=== PATIENT | male | born 2000 | race Asian ===

== ENCOUNTER 2023-04-03 17:23 | Inpatient (IN) ==
[2023-04-03 23:18] LABS: ABS Lymphocytes 1.3 10^3/uL (1.0-4.8); ABS Monocytes 0.6 10^3/uL (0.0-1.1); ABS Neutrophils 2.4 10^3/uL (1.5-7.6); ABS Nucleated RBC 0.01 10^3/ul; Eosinophil % 0.8 %; Hematocrit 42.5 % (38-53); Hemoglobin 14.7 g/dL (13.2-16.3); Lymphocyte % 30.7 %; Mean Corpuscular Hemoglobin 31.1 pg (27-33); Mean Corpuscular Hgb Conc 34.7 g/dL (31-36); Mean Corpuscular Volume 89.5 fL (80-97); Mean Platelet Volume 8.1 fL (7.5-11.2); Nucleated Red Blood Cells % 0.2 %/100WBC (0.0-0.8); Platelet Count 206 10^3/uL (150-450); Red Blood Count 4.74 10^6/uL (4.06-5.63); Red Cell Distribution Width 12.7 % (12-17); White Blood Count 4.4 10^3/uL (3.6-10.2)
[2023-04-03 23:36] LABS: Albumin 4.3 g/dL (3.2-5.2); Albumin/Globulin Ratio 1.4 (1-3); Calcium 9.4 mg/dL (8.6-10.3); Creatinine, Serum 0.9 mg/dL (0.67-1.17); Globulin 3.1 g/dL (2-4); Potassium 3.6 mmol/L (3.5-5.0); Total Bilirubin 0.4 mg/dL (0.2-1.0); Total Protein 7.4 g/dL (6.4-8.9); eGFR CKD-EPI 124.6 (>60)
[2023-04-04] MEDS ORDERED: Al Hydrox/Mg Hydrox/Simet LIQ 30 ML UDC PO PRN (02:11)
[2023-04-04] MEDS: Vitamin THERAPEUTIC TAB PO SCH (09:51)
[2023-04-05] MEDS: Vitamin THERAPEUTIC TAB PO SCH (10:21)
[2023-04-06] MEDS: Vitamin THERAPEUTIC TAB PO SCH (09:33)
[2023-04-07] MEDS: Vitamin THERAPEUTIC TAB PO SCH (08:21)
[2023-04-07 10:03] VITALS: BP 116/66
== END 2023-04-07 14:42 | disposition home or self-care (01) | DRG 882 ==
LOC: ED 17:23 → EDHOLD 04-04 01:34 → BSU 04-04 02:42
PROVIDERS: ADMIT Psychiatry & Neurology Psychiatry; ATTEND Psychiatry & Neurology Psychiatry